=== PATIENT | male | born 1970 | race Caucasian/White ===

== ENCOUNTER 2020-04-21 12:28 | Observation (INO) | payer OTHER ==
[2020-04-21 12:44] VITALS: BMI 22.5
[2020-04-21 13:53] LABS: BASO % 0.5 % (0-2.0); EOS % 2.1 % (0-4.5); HEMATOCRIT 43.1 % (35.4-49); HEMOGLOBIN 14.7 GM/dL (11.7-16.9); LYMPH % 37.3 % (8-40); MCH 30.2 pg (25.7-33.7); MCHC 34.1 g/dl (32.0-35.9); MEAN CELL VOLUME 88.7 fl (80-96); MEAN PLT VOLUME 9.1 fl (7.5-11.1); MONO % 4.9 % (3.8-10.2); NEUT % 55.2 % (42.8-82.8); PLATELET COUNT 202 K/MM3 (134-434); RBC 4.86 M/mm3 (4.00-5.60); RDW 13.8 % (11.9-15.9); WHITE BLOOD COUNT 4.4 K/mm3 (4.0-10.0)
[2020-04-21 14:01] LABS: INR 1.04 (0.83-1.09); PROTHROMBIN TIME (PATIENT) 12.6 SEC (9.7-13.0)
[2020-04-21 14:27] LABS: CHLORIDE 108 mmol/L (98-107); POTASSIUM 4.1 mmol/L (3.5-5.1); SODIUM 143 mmol/L (136-145)
[2020-04-21 14:30] LABS: ALBUMIN 3.6 g/dl (3.4-5.0)
[2020-04-21 14:31] LABS: ANION GAP 6 MMOL/L (8-16); BLOOD UREA NITROGEN 12.2 mg/dL (7-18); CO2 30 mmol/L (21-32); GLUCOSE,RANDOM 76 mg/dL (74-106)
[2020-04-21 14:34] LABS: SGOT/AST 23 U/L (15-37); SGPT/ALT 41 U/L (13-61)
[2020-04-21 14:35] LABS: BILIRUBIN,TOTAL 0.6 mg/dL (0.2-1); TOT PROT 6.6 g/dl (6.4-8.2)
[2020-04-21 14:36] LABS: ALK PHOS 91 U/L (45-117)
[2020-04-21] MEDS ORDERED: ACETAMINOPHEN 1000 MG/100 ML VIAL (NON FORMULARY) IVPB ONE (18:49)
[2020-04-21] MEDS ORDERED: ASPIRIN 325 MG TABLET PO ONE (18:59)
[2020-04-21] MEDS ORDERED: ACETAMINOPHEN INJECTION 100 ML IVPB ONE (19:02)
[2020-04-21] MEDS ORDERED: ACETAMINOPHEN 500 MG TABLET (FP) PO PRN (19:46)
[2020-04-21 20:19] LABS: CHOLESTEROL 271 mg/dL (50-200)
[2020-04-21 20:20] LABS: LDL CHOLESTEROL (ONLY SJRH) 171 mg/dL (5-100); TRIGLYCERIDES 204 mg/dL (0-150)
[2020-04-21 20:23] LABS: HDL CHOLESTEROL 64 mg/dL (40-60)
[2020-04-21 21:00] LABS: URINE APPEARANCE CLEAR; URINE BILIRUBIN NEGATIVE (NEGATIVE); URINE COLOR YELLOW; URINE GLUCOSE (UA) NEGATIVE (NEGATIVE); URINE KETONE NEGATIVE (NEGATIVE); URINE LEUK ESTERASE NEGATIVE (NEGATIVE); URINE NITRITE NEGATIVE (NEGATIVE); URINE PROTEIN NEGATIVE (NEGATIVE); URINE UROBILINOGEN 0.2 mg/dL (0.2-1.0)
[2020-04-21] MEDS ORDERED: ATORVASTATIN CA 10 MG TABLET (FP) PO SCH (22:00)
[2020-04-21] MEDS ORDERED: ATORVASTATIN CA 10 MG TABLET (FP) ONE (22:29)
[2020-04-22] MEDS ORDERED: ACETAMINOPHEN 500 MG TABLET (FP) ONE (06:08)
[2020-04-22 09:06] LABS: BASO % 0.5 % (0-2.0); EOS % 2.6 % (0-4.5); HEMATOCRIT 44.3 % (35.4-49); HEMOGLOBIN 14.9 GM/dL (11.7-16.9); LYMPH % 40.7 % (8-40); MCH 29.9 pg (25.7-33.7); MCHC 33.7 g/dl (32.0-35.9); MEAN CELL VOLUME 88.6 fl (80-96); MEAN PLT VOLUME 9.5 fl (7.5-11.1); MONO % 5.3 % (3.8-10.2); NEUT % 50.9 % (42.8-82.8); PLATELET COUNT 198 K/MM3 (134-434); RBC 4.99 M/mm3 (4.00-5.60); RDW 13.6 % (11.9-15.9); WHITE BLOOD COUNT 3.8 K/mm3 (4.0-10.0)
[2020-04-22 09:36] LABS: POTASSIUM 4.1 mmol/L (3.5-5.1)
[2020-04-22 09:44] LABS: ALBUMIN 3.8 g/dl (3.4-5.0)
[2020-04-22 09:45] LABS: CALCIUM 9.5 mg/dL (8.5-10.1)
[2020-04-22 09:46] LABS: MAGNESIUM 2.1 mg/dL (1.8-2.4)
[2020-04-22 09:49] LABS: BILIRUBIN,TOTAL 1.2 mg/dL (0.2-1); CREATININE 0.9 mg/dL (0.55-1.3); PHOSPHOROUS 2.9 mg/dL (2.5-4.9)
[2020-04-22 09:50] LABS: TOT PROT 7.2 g/dl (6.4-8.2)
[2020-04-22] MEDS ORDERED: ENOXAPARIN NA (PORCINE) 40 MG/0.4 ML DISP.SYRIN SQ SCH (10:00)
[2020-04-22] MEDS ORDERED: ENOXAPARIN NA (PORCINE) 40 MG/0.4 ML DISP.SYRIN SQ ONE (10:00)
[2020-04-22] MEDS ORDERED: ATORVASTATIN CA 40 MG TABLET (FP) PO SCH (10:03)
[2020-04-22 15:46] VITALS: BP 125/85; PULSE 65; TEMP 97.7
== END 2020-04-22 17:00 | disposition home or self-care (01) ==
LOC: JER 12:28 → INTOOBSV 19:21 → JERBED 19:21
PROVIDERS: ADMIT Internal Medicine; ATTEND Internal Medicine
PROC: 3E033NZ Introduction of Analgesics, Hypnotics, Sedatives into Peripheral Vein, Percutaneous Approach (ICD-10-PCS; principal; 2020-04-21)
PROC: 3E023GC Introduction of Other Therapeutic Substance into Muscle, Percutaneous Approach (ICD-10-PCS; 2020-04-21)
DX: R00.1 Bradycardia, unspecified (principal); E78.00 Pure hypercholesterolemia, unspecified; I45.10 Unspecified right bundle-branch block; R07.9 Chest pain, unspecified
CPT/HCPCS: 36415; 71045-TC-FY; 71275-TC; 74175-TC; 80053; 80061; 81003; 82550; 83036; 83721; 83735; 84100; 84484; 85025; 85610; 93005; 93010; 93306-TC; 96372; 96374; 99285-25; C9803; G0378; J0131; Q9967; U0003